=== PATIENT | male | born 1965 | race African-American/Black ===

== ENCOUNTER 2016-08-03 13:22 | Outpatient (CLI) | payer MEDICARE, MEDICAID ==
[2016-08-03 14:02] LABS: ALT (SGPT) 12 U/L (0-55); AST (SGOT) 16 U/L (5-34); Albumin 3.5 g/dL (3.5-5.0); Alkaline Phosphatase 105 U/L (40-150); Anion Gap 15 mmol/L (10-20); BUN (Urea Nitrogen) 19 mg/dL (8.9-20.6); Bilirubin, Total 0.5 mg/dL (0.2-1.2); Calc. Creatinine Clearance 0 mL/min (70-130); Carbon Dioxide 26 mmol/L (22-29); Cardiac Risk 3.6 (Less than 4.5); Chloride 101 mmol/L (98-107); Cholesterol 188 mg/dL (< 200 Desired); Estimated GFR-MDRD Greater than 90; Globulin 5.3 g/dL (2.4-3.5); Glucose 91 mg/dL (70-105); HDL Cholesterol 52 mg/dL (>60 Neg Risk); LDL Cholesterol, Calculated 118 mg/dL; Potassium 4.2 mmol/L (3.5-5.1); Protein, Total 8.8 g/dL (6.0-8.3); Sodium 138 mmol/L (136-145); Triglycerides 89 mg/dL (Less than 150)
[2016-08-03 14:32] LABS: #Basophils 0.1 thou/uL (0.0-0.2); #Eosinphils 0.2 thou/uL (0.0-0.7); #Lymphocytes 2.5 thou/uL (1.20-3.40); #Monocytes 0.6 thou/uL (0.11-0.59); #Neutrophils 5.4 thou/uL (1.40-6.50); %Basophils 1.3 % (0.0-1.0); %Eosinophils 1.8 % (0.0-10.0); %Lymphocytes 28.6 % (21.0-51.0); %Monocytes 6.4 % (0.0-10.0); %Neutrophils 61.9 % (42.0-75.0); Anisocytosis SLIGHT = 6-15 cells (100X) (0-5/hpf); Hemoglobin 12.5 g/dL (14.0-18.0); Hypochromia SLIGHT = 6-15 cells (100X) (0-5/hpf); MDiff Complete? YES; Mean Corpuscular HGB CONC 32.1 g/dL (32.0-36.0); Mean Corpuscular Hemoglobin 24.3 pg (27.0-31.0); Mean Corpuscular Volume 75.8 fl (80.0-94.0); Mean Platelet Volume 7.7 fL (7.4-10.4); Microcytosis SLIGHT = 6-15 cells (100X) (0-5/hpf); PLT Morphology Comment Appears Increased; Platelet Count 402 thou/uL (130-400); RBC Distribution Width 15.7 % (11.5-14.5); Red Blood Cell (RBC) Count 5.14 mill/uL (4.70-6.10); White Blood Cell (WBC) Count 8.7 thou/uL (4.8-10.8)
[2016-08-04 17:20] LABS: Iron 39 ug/dL (65-175); Iron Binding Capacity, Total 345 mcg/dL (261-462)
== END 2016-08-03 13:23 | disposition home or self-care (01) ==
LOC: MADLABBHPM 13:22
PROVIDERS: ATTEND Family Medicine
DX: D50.9 Iron deficiency anemia, unspecified (principal); E78.2 Mixed hyperlipidemia
CPT/HCPCS: 36415; 80053; 80061; 82728; 83540; 83550; 85025

== ENCOUNTER 2016-11-12 09:08 | Outpatient (CLI) | payer MEDICARE, MEDICAID ==
--- NOTE | 2016-11-12 09:55 | RAD ---
CHEST PA AND LATERAL: HISTORY: A 50-year-old male with acute bronchitis. COMPARISON: 02/22/13. FINDINGS: There is blunting of the right costophrenic angle which appears to be little changed from 02/22/15. The heart size is normal. The lungs are clear of acute process. IMPRESSION: Overall stable blunting of the right costophrenic angle. No pneumonia, edema, pleural effusion, or other active intrathoracic disease. POS: [facility]
== END 2016-11-12 09:09 | disposition home or self-care (01) ==
LOC: MADRAD 09:08
PROVIDERS: ATTEND Family Medicine
DX: J20.9 Acute bronchitis, unspecified (principal)
CPT/HCPCS: 71020

== ENCOUNTER 2017-02-08 09:09 | Outpatient (CLI) | payer MEDICARE, MEDICAID ==
[2017-02-08 09:35] LABS: #Basophils 0.1 thou/uL (0.0-0.2); #Eosinphils 0.1 thou/uL (0.0-0.7); #Monocytes 0.7 thou/uL (0.11-0.59); #Neutrophils 8.1 thou/uL (1.40-6.50); %Basophils 0.9 % (0.0-1.0); %Eosinophils 1.1 % (0.0-10.0); %Monocytes 6.3 % (0.0-10.0); %Neutrophils 73.7 % (42.0-75.0); Hemoglobin 12.2 g/dL (14.0-18.0); Mean Corpuscular HGB CONC 29.8 g/dL (32.0-36.0); Mean Corpuscular Hemoglobin 23.8 pg (27.0-31.0); Mean Corpuscular Volume 79.9 fl (80.0-94.0); Mean Platelet Volume 7.7 fL (7.4-10.4); Platelet Count 400 thou/uL (130-400); RBC Distribution Width 15.4 % (11.5-14.5); Red Blood Cell (RBC) Count 5.14 mill/uL (4.70-6.10)
[2017-02-08 09:59] LABS: Cardiac Risk 4.7 (Less than 4.5)
[2017-02-08 10:16] LABS: Thyroid Stimulating Hormone 0.6651 uIU/mL (0.35-4.94)
[2017-02-08 12:32] LABS: Ferritin 175.83 ng/mL (22-322)
== END 2017-02-08 09:10 | disposition home or self-care (01) ==
LOC: MADLABBHPM 09:09
PROVIDERS: ATTEND Family Medicine
DX: E78.2 Mixed hyperlipidemia (principal); J20.9 Acute bronchitis, unspecified; D50.9 Iron deficiency anemia, unspecified
CPT/HCPCS: 36415; 80061; 82728; 83540; 84443; 85025

== ENCOUNTER 2017-04-20 17:48 | Emergency (ER) | payer MEDICARE, MEDICAID ==
[2017-04-20] MEDS ORDERED: Cyclobenzaprine 10 MG TAB ONE (18:15)
[2017-04-20] MEDS ORDERED: Dexamethasone 4 MG TAB ONE (18:15)
[2017-04-20] MEDS ORDERED: HYDROcodone/Acetaminophen 10/325 mg Tablet ONE (18:15)
== END 2017-04-20 18:19 | disposition home or self-care (01) ==
LOC: MADERS 17:48
DX: M54.5 Low back pain (principal); G89.29 Other chronic pain; K21.9 Gastro-esophageal reflux disease without esophagitis; E78.00 Pure hypercholesterolemia, unspecified; I10 Essential (primary) hypertension; F32.9 Major depressive disorder, single episode, unspecified; Z79.899 Other long term (current) drug therapy; Z79.82 Long term (current) use of aspirin
CPT/HCPCS: 99283; J8540

== ENCOUNTER 2019-05-17 09:35 | Outpatient (CLI) | payer MEDICARE, MEDICAID ==
[2019-05-17 17:13] LABS: #Basophils 0.1 thou/uL (0.0-0.2); #Eosinphils 0.2 thou/uL (0.0-0.7); #Lymphocytes 2.7 thou/uL (1.20-3.40); #Monocytes 0.4 thou/uL (0.11-0.59); #Neutrophils 4.9 thou/uL (1.40-6.50); %Basophils 0.7 % (0.0-1.0); %Eosinophils 2.7 % (0.0-10.0); %Lymphocytes 32.7 % (21.0-51.0); %Monocytes 4.6 % (0.0-10.0); %Neutrophils 59.3 % (42.0-75.0); Anisocytosis SLIGHT = 6-15 cells (100X) (0-5/hpf); Hemoglobin 11.6 g/dL (14.0-18.0); Hypochromia SLIGHT = 6-15 cells (100X) (0-5/hpf); MDiff Complete? YES; Mean Corpuscular HGB CONC 28.3 g/dL (32.0-36.0); Mean Corpuscular Hemoglobin 24.3 pg (27.0-31.0); Mean Corpuscular Volume 85.8 fL (78.0-98.0); Mean Platelet Volume 6.9 fL (7.4-10.4); Platelet Count 322 thou/uL (130-400); Platelet Morphology Comment Appears Adequate; RBC Distribution Width 16.3 % (11.5-14.5); Red Blood Cell (RBC) Count 4.79 mill/uL (4.70-6.10); White Blood Cell (WBC) Count 8.2 thou/uL (4.8-10.8)
== END 2019-05-17 09:36 | disposition home or self-care (01) ==
LOC: MADLABBHPM 09:35
PROVIDERS: ATTEND Family Medicine
DX: D50.9 Iron deficiency anemia, unspecified (principal)
CPT/HCPCS: 36415; 82728; 83540; 85025

== ENCOUNTER 2019-12-31 18:35 | Emergency (ER) | payer MEDICARE, MEDICAID ==
[2019-12-31] MEDS ORDERED: HYDROcodone/Acetaminophen 10/325 mg Tablet ONE (18:58)
[2019-12-31] MEDS ORDERED: Diazepam 5 MG TAB ONE (18:58)
[2019-12-31] MEDS ORDERED: Ketorolac Tromethamine 60 MG/2 ML VIAL ONE (18:59)
== END 2019-12-31 19:35 | disposition home or self-care (01) ==
LOC: MADERS 18:35
DX: M54.42 Lumbago with sciatica, left side (principal); M54.41 Lumbago with sciatica, right side; M19.011 Primary osteoarthritis, right shoulder; E11.9 Type 2 diabetes mellitus without complications; K21.9 Gastro-esophageal reflux disease without esophagitis; I10 Essential (primary) hypertension; Z79.899 Other long term (current) drug therapy
CPT/HCPCS: 96372; 99282; J1885

== ENCOUNTER 2020-03-17 14:54 | Emergency (ER) | payer MEDICARE, OTHER ==
[~2020-03-17 14:54] MED LIST: Sodium Chloride 0.9% 100 ML BAG ONE
[2020-03-17] MEDS ORDERED: Tranexamic Acid 1,000 MG/10 ML VIAL ONE (15:20)
[2020-03-17] MEDS ORDERED: methylPREDNISolone Sod Succ/PF 125 MG/2 ML VIAL ONE (15:20)
[2020-03-17] MEDS ORDERED: Famotidine In NaCl 20 mg/50 ml Premix Bag ONE (15:20)
[2020-03-17] MEDS ORDERED: diphenhydrAMINE 50 MG/ML VIAL ONE (15:20)
== END 2020-03-17 17:17 | disposition home or self-care (01) ==
LOC: MADERS 14:54
DX: T78.3XXA Angioneurotic edema, initial encounter (principal); E11.9 Type 2 diabetes mellitus without complications; E66.9 Obesity, unspecified; E78.00 Pure hypercholesterolemia, unspecified; K21.9 Gastro-esophageal reflux disease without esophagitis; I10 Essential (primary) hypertension; F32.9 Major depressive disorder, single episode, unspecified; Z79.899 Other long term (current) drug therapy; Z79.84 Long term (current) use of oral hypoglycemic drugs; Z79.82 Long term (current) use of aspirin
CPT/HCPCS: 94760; 96365; 96375; J1200; J2930; J3490

== ENCOUNTER 2020-04-19 11:54 | Emergency (ER) | payer MEDICARE, OTHER ==
[2020-04-19] MEDS ORDERED: Ketorolac Tromethamine 30 MG/ML VIAL ONE (12:14)
== END 2020-04-19 12:35 | disposition home or self-care (01) ==
LOC: MADERS 11:54
DX: M54.5 Low back pain (principal); G89.29 Other chronic pain; E11.9 Type 2 diabetes mellitus without complications; E66.9 Obesity, unspecified; K21.9 Gastro-esophageal reflux disease without esophagitis; E78.00 Pure hypercholesterolemia, unspecified; I10 Essential (primary) hypertension; F32.9 Major depressive disorder, single episode, unspecified; Z79.82 Long term (current) use of aspirin; Z79.84 Long term (current) use of oral hypoglycemic drugs; Z79.899 Other long term (current) drug therapy
CPT/HCPCS: 96372; 99283; J1885

== ENCOUNTER 2020-04-24 11:56 | Emergency (ER) | payer MEDICARE, OTHER ==
[2020-04-24] MEDS ORDERED: Ketorolac Tromethamine 30 MG/ML VIAL ONE (12:54)
[2020-04-24] MEDS ORDERED: predniSONE 20 MG TAB ONE (12:54)
== END 2020-04-24 13:45 | disposition home or self-care (01) ==
LOC: MADERS 11:56
DX: G89.29 Other chronic pain (principal); M54.5 Low back pain; F32.9 Major depressive disorder, single episode, unspecified; E11.9 Type 2 diabetes mellitus without complications; E66.9 Obesity, unspecified; E78.00 Pure hypercholesterolemia, unspecified; I10 Essential (primary) hypertension
CPT/HCPCS: 51798; 96372; J1885; J7512

== ENCOUNTER 2020-05-15 10:30 | Emergency (ER) | payer MEDICARE, OTHER ==
[2020-05-15] MEDS ORDERED: Ketorolac Tromethamine 30 MG/ML VIAL ONE (11:13)
== END 2020-05-15 11:30 | disposition home or self-care (01) ==
LOC: MADERS 10:30
DX: M54.5 Low back pain (principal); E11.9 Type 2 diabetes mellitus without complications; E66.9 Obesity, unspecified; Z79.899 Other long term (current) drug therapy
CPT/HCPCS: 96372; 99283; J1885